=== PATIENT | male | born 1970 | race Caucasian/White ===

== ENCOUNTER → 2021-08-23 | Outpatient (CLI) | payer BC ==
[2021-08-23 09:19] LABS: BASOPHILS # (AUTO) 0.1 10^3/uL (0.0-0.1); BASOPHILS % (AUTO) 1 % (0-10); EOSINOPHILS # (AUTO) 0.1 10^3/uL (0.0-0.3); EOSINOPHILS % (AUTO) 1 % (0-10); HEMATOCRIT 47 % (40-54); LYMPHOCYTES # (AUTO) 1.6 10^3/uL (1.0-4.0); LYMPHOCYTES % (AUTO) 23 % (12-44); MEAN CORPUSCULAR HEMOGLOBIN 30 pg (25-34); MEAN CORPUSCULAR HGB CONC 34 g/dL (32-36); MEAN CORPUSCULAR VOLUME 89 fL (80-99); MEAN PLATELET VOLUME 10.7 fL (9.0-12.2); MONOCYTES # (AUTO) 0.8 10^3/uL (0.0-1.0); MONOCYTES % (AUTO) 11 % (0-12); NEUTROPHILS # (AUTO) 4.5 10^3/uL (1.8-7.8); NEUTROPHILS % (AUTO) 64 % (42-75); PLATELET COUNT 221 10^3/uL (130-400)
[2021-08-23 09:24] LABS: ALBUMIN 4.4 GM/DL (3.2-4.5); POTASSIUM 4.2 MMOL/L (3.6-5.0)
[2021-08-23 09:25] LABS: CALCIUM 9.4 MG/DL (8.5-10.1)
[2021-08-23 09:27] LABS: TOTAL PROTEIN 7.3 GM/DL (6.4-8.2)
[2021-08-23 09:29] LABS: BILIRUBIN,TOTAL 0.6 MG/DL (0.1-1.0)
[2021-08-23 09:30] LABS: CREATININE SERUM 0.92 MG/DL (0.60-1.30)
== END ==
LOC: LAB 08:57
PROVIDERS: ATTEND Nurse Practitioner Family
DX: Z00.00 Encounter for general adult medical examination without abnormal findings (principal)
CPT/HCPCS: 36415; 80053; 80061; 83036; 84443; 85025